=== PATIENT | female | born 2005 | race Caucasian/White ===

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

== ENCOUNTER 2023-03-07 12:55 | Emergency (ER) | payer BC, SELFPAY ==
[2023-03-07 12:58] VITALS: BP 122/68; PULSE 85; RESP 22; TEMP 35.7; O2SAT 99; BMI 24.8
--- NOTE | 2023-03-07 13:08 | ED.GENADULT ---
HPI - General Adult General Time Seen by Provider: 13:08 Date Seen: 03/07/23 Chief complaint: Headache/Migraine Stated complaint: migraine Time Seen by Provider: 03/07/23 13:00 History of Present Illness HPI narrative: This is a 18-year-old female college student accompanied to the ER today by her college roommate. The patient has a history of migraine headaches which previously had been related to hormonal cycle, and tending to occur around her menstrual cycle. She had seen her doctors for these migraine headaches and has p.r.n. prescriptions that she uses for for sumatriptan and nausea medication. She had had placement of an IUD some months ago and has been doing quite well since then. Menstrual cycles are much brand engineer and headaches are much less frequent and less severe. She has not been needing to use very much of her medicine or recent months. Sometimes her headaches are triggered by stress, but tend to be more hormonal related. Typically which she gets a migraine she takes sumatriptan. Her headache gets better, she gets drowsy and she falls asleep. When she wakes up her headache is gone. Sometimes the patient gets mild headaches in the morning when she wakes up associated with jaw clenching. She does not have any recent illness, fever, cough, URI symptoms. No recent head injury. She woke up this morning and had mild sensation that she might have been clenching her jaw, but not really a headache. She went to her morning 90 minute statistics class. While instead to 6/she began to develop symptoms of a bad headache located in the frontal region of her head and behind her eyes. It was not abrupt or sudden in onset. It was associated with nausea. She does get nauseous and sometimes will even vomit once when she has a migraine . This morning she vomited more than once. Her headache is little bit more severe and in a different spot than her normal migraine. No other associated symptoms such as blurry vision, numbness or tingling in her face, arms or legs. She started to feel somewhat sweaty and having ?hot flashes? but did not really have a fever. She was worried and anxious. Because of the severity of her headache she came here to the ER with a roommate. Related Data Home Medications Medication Instructions Recorded Confirmed methylphenidate 27 mg PO DAILY 08/22/22 03/07/23 sumatriptan 5 mg/actuation nasal 5 mg intranasal PRN migraine 03/07/23 03/07/23 spray Allergies Allergy/AdvReac Type Severity Reaction Status Date / Time Penicillins Allergy Verified 03/07/23 13:06 [facility] Social History Smoking Status: Never smoker Do you use any of these nicotine containing products: None How often do you have a drink containing alcohol: never How often do you have six or more drinks on one occasion: Never AUDIT-C Alcohol total score: 0 Non-prescribed substance use: denies use Exam Narrative: Exam Narrative: Constitutional: Initially uncomfortable but conversant. Photophobic so I did the lights. After pain medication she is feeling much better. Appears well-developed and well-nourished. Alert. Conversant. Non toxic. HENT: Head: Atraumatic. Nose: Nose normal. Mouth/Throat: Oral mucosa is clear and moist. no trismus. Pharynx normal. Tonsils symmetric. No tonsillar enlargement, erythema, or exudate. Eyes: Conjunctivae normal. EOM normal. Pupils equal, round, and reactive to light. No scleral icterus. Neck: Normal active, pain-free range of motion. Neck supple. No tracheal deviation present. Cardiovascular: Normal rate, regular rhythm. No gallop. No friction rub. No murmur heard. Symmetric radial artery pulses Pulmonary/Chest: Effort normal. No stridor. No respiratory distress. No wheezes. No rales. No rhonchi . No tenderness. Abdominal: Soft. Bowel sounds normal. No distension. No mass. No tenderness. No rebound. No guarding. Musculoskeletal: RUE: Normal range of motion. No tenderness. No deformity LUE: Normal range of motion. No tenderness. No deformity RLE: Normal range of motion. No edema. No tenderness. No deformity LLE: Normal range of motion. No edema. No tenderness. No deformity Lymph: No cervical adenopathy. Neuro: Mental status normal. Attention normal. Alert and oriented x3. GCS 15. Memory normal. Speech fluent. Cognition normal. Cranial Nerves intact II-XII except I did not formally test gag or visual acuity. EOMI. Palate elevates symmetrically and tongue protrudes in the midline. Strength: 5/5 trapezius on the right and left 5/5 deltoid on the right and left 5/5 biceps on the right and left 5/5 triceps on the right and left 5/5 chocolate production machine operator on the right and left 5/5 thumb opposition on the right and left 5/5 finger abduction on the right and left 5/5 hip flexors (L3) on the right and left 5/5 quadriceps (L4) on the right and left 5/5 tibialis anterior on the right and left 5/5 EHL (L5) on the right and left 5/5 gastrocnemius (S1) on the right and left 5/5 hamstring on the right and left Sensation intact to light touch in both upper extremities (C4-T1) Sensation intact to light touch in Both lower extremities (L4-S1). Finger to nose and coordination normal. Gait normal. Skin: Skin is warm and dry. No rash noted. No pallor. Normal capillary refill. Psychiatric: Normal mood. Normal affect. Const: Vital Signs, click to edit/add: Vital Signs - 24 hr 03/07/23 12:58 Temperature 96.3 F L Pulse Rate [Pulse Oximeter] 85 Respiratory Rate 22 Blood Pressure [Ri t Upper Arm] 122/68 Pulse Oximetry 99 Oxygen Delivery Me thod Room Air Course Course ED Course: Recheck-received medicines. Headache almost completely resolved. Nausea resolved. Slept a little bit and feels better. She says at this point she feels like there is some residual tension left over but really no headache. Neuro exam normal. Discussed with patient and her roommate. We agree it would be appropriate for discharge home without further workup at this time. Vital Signs Vital signs: Initial Vital Signs Temperature 96.3 F L 03/07/23 12:58 Temperature Source Temporal Artery Scan 03/07/23 12:58 Pulse Rate 85 03/07/23 12:58 Respiratory Rate 22 03/07/23 12:58 Blood Pressure 122/68 03/07/23 12:58 Blood Pressure Mean 86 03/07/23 12:58 Blood Pressure Position Sitting 03/07/23 12:58 Pulse Oximetry 99 03/07/23 12:58 Oxygen Delivery Method Room Air 03/07/23 12:58 Vital Signs Temperature 96.3 F L 03/07/23 12:58 Pulse Rate 85 03/07/23 12:58 Respiratory Rate 22 03/07/23 12:58 Blood Pressure 122/68 03/07/23 12:58 Pulse Oximetry 99 03/07/23 12:58 Oxygen Delivery Method Room Air 03/07/23 12:58 Temperature 96.3 F L 03/07/23 12:58 Pulse Rate 85 03/07/23 12:58 Respiratory Rate 22 03/07/23 12:58 Blood Pressure 122/68 03/07/23 12:58 Pulse Oximetry 99 03/07/23 12:58 Oxygen Delivery Method Room Air 03/07/23 12:58 Medical Decision Making MDM Narrative Medical decision making narrative: Ths patient presents with a headache associated with nausea and photophobia. A broad differential diagnosis was considered including tension, migraine, analgesic rebound, occipital neuralgia, etc. Other less common but serious causes considered included meningitis, encephalitis, subarachnoid bleed, stroke, tumor, etc. The patient has no signs of serious headache etiologies at this point. No advanced imaging is indicated, nor is CT/lumbar puncture for SAH. Patients questions were answered and they feel improved after above interventions in ED. Supportive outpatient management is therefore indicated. Headache precautions given for home. Lab Data Labs: Lab Results 03/07/23 Range/Units 13:31 HCG, Qual Negative (Negative) Discharge Plan Discharge Clinical Impression: Headache Patient Disposition: Home, Self-Care Condition: Stable Instructions: Acute Headache (DC) Additional Instructions: Please return to the ER right away if you have worsening headache, fever, stiff neck, blurry vision, numbness or weakness in your face, or arms, or legs, or if you have any concerns. Use caution this afternoon. You are drowsy from the medicines we gave you so do not drive, operate machinery, or perform dangerous activities. Activity Level: No Restrictions Prescriptions: No Action methylphenidate 27 mg PO DAILY sumatriptan 5 mg/actuation spray,non-aerosol 5 mg INTRANASAL PRN Follow Up/Referrals: Provider,Not a Local [Primary Care Provider] - Stand Alone Forms: [place] Info Instructions
[2023-03-07] MEDS: diphenhydrAMINE 50 MG/ML inj 12.5 MG IVP (13:36)
[2023-03-07] MEDS: METOCLOPRAMIDE HCL 5 MG/ML INJ 10 MG IVP (13:36)
[2023-03-07] MEDS: KETOROLAC 15 MG/ML inj IVP (13:36)
[2023-03-07] MEDS: 0.9 % SODIUM CHLORIDE 1000 ml 1,000 ML IV (13:36)
[2023-03-07 14:31] LABS: HCG Qualitative Serum* Negative (Negative)
== END 2023-03-07 15:20 | disposition home or self-care (01) ==
PROVIDERS: Emergency Provider Emergency Medicine
DX: R51.9 Headache, unspecified (principal)
CPT/HCPCS: 36415; 84703; 96374; 96375; 99283; J1200; J1885; J2765; J7030

== ENCOUNTER 2025-04-06 19:23 | Outpatient (CLI) | payer BC, SELFPAY | END 2025-04-06 19:24 | disposition home or self-care (01) | LOC: NFLDUCREF 19:24 | PROVIDERS: Visit Provider Physician Assistant | DX: R21 Rash and other nonspecific skin eruption (principal) | CPT/HCPCS: 87070; 87186 ==